=== PATIENT | male | born 1970 | race Caucasian/White ===

== ENCOUNTER → 2023-04-14 09:21 | Outpatient (REF) | payer OTHER, SELFPAY | LOC: ANHLAB 09:21 | PROVIDERS: PCP Family Medicine; Visit Provider Plastic Surgery | DX: L72.11 Pilar cyst (principal) | CPT/HCPCS: 88305 ==

== ENCOUNTER 2023-05-06 06:48 | Outpatient (CLI) | payer OTHER, SELFPAY ==
[2023-05-06 07:19] LABS: Basophils Percent Auto 0.8 % (0.2-1.2); Eosinophils Absolute Auto 0.3 K/mm3 (0-0.3); Eosinophils Percent Auto 5.5 % (0-4.4); Hematocrit 44.2 % (42.0-52.0); Hemoglobin 14.8 g/dL (14.0-18.0); Immature Granulocyte Absolute 0.01 K/mm3 (0.00-0.031); Immature Granulocyte Percent A 0.2 % (0-0.5); Lymphocytes Absolute Auto 1.89 K/mm3 (0.9-3.2); Lymphocytes Percent Auto 37.4 % (18.3-44.2); Mean Corpuscular HGB Conc 33.5 g/dl (32-36); Mean Corpuscular Hemoglobin 29.4 pg (26-34); Mean Corpuscular Volume 87.7 fl (80-100); Mean Platelet Volume 10.6 fl (7.4-10.4); Monocytes Absolute Auto 0.5 K/mm3 (0.1-0.6); Monocytes Percent Auto 8.9 % (2.6-8.5); Neutrophils Absolute Auto 2.4 K/mm3 (1.3-6.7); Neutrophils Percent Auto 47.2 % (45.5-73.1); Platelet Count Result 168 k/mm3 (150-375); Red Blood Count 5.04 M/mm3 (4.6-6.20); Red Cell Distribution Width 12.6 % (11.5-14.5); White Blood Count 5.1 K/mm3 (4.5-10.0)
[2023-05-06 07:41] LABS: Alanine Aminotransferase 29 U/L (6-50); Albumin Level 4.2 g/dL (3.5-5.1); Alkaline Phosphatase 78 U/L (38-126); Anion Gap 5 mmol/L (8-16); Aspartate Amino Transferase 23 U/L (17-59); Bilirubin,Total 0.7 mg/dL (0.2-1.3); Blood Urea Nitrogen 16 mg/dL (9-20); Carbon Dioxide 29 mmol/L (22-30); Chloride 105 mmol/L (98-107); Cholesterol 191 mg/dL (0-200); Estimated Glomerular Filt Rate > 60; Glucose 100 mg/dL (65-110); HDL Direct 46 mg/dL; Potassium 4.2 mmol/L (3.4-5.0); Sodium 139 mmol/L (137-145); Triglycerides 87 mg/dL (<150)
[2023-05-06 07:52] LABS: LDL Cholesterol Direct 113 mg/dL
[2023-05-06 08:00] LABS: Prostate Specific Antigen 1.5 ng/mL (< OR = 4.0)
== END 2023-05-06 06:49 | disposition home or self-care (01) ==
LOC: ANHLAB 06:50
PROVIDERS: PCP Family Medicine; Visit Provider Physician Assistant Medical
DX: R22.0 Localized swelling, mass and lump, head (principal); Z12.5 Encounter for screening for malignant neoplasm of prostate; Z13.1 Encounter for screening for diabetes mellitus; Z13.220 Encounter for screening for lipoid disorders
CPT/HCPCS: 36415; 80053; 80061; 84153; 85025; G0103

== ENCOUNTER → 2023-05-13 08:33 | Outpatient (REF) | payer OTHER, SELFPAY | LOC: ANHLAB 08:33 | PROVIDERS: PCP Family Medicine; Visit Provider Plastic Surgery | DX: L72.11 Pilar cyst (principal) | CPT/HCPCS: 88305 ==

== ENCOUNTER → 2023-06-02 14:33 | Outpatient (REF) | payer OTHER, SELFPAY | LOC: ANHLAB 14:33 | PROVIDERS: PCP Family Medicine; Visit Provider Plastic Surgery | DX: L72.11 Pilar cyst (principal) | CPT/HCPCS: 88305 ==

== ENCOUNTER 2023-07-15 00:55 | Day surgery (SDC) | payer OTHER, SELFPAY ==
[2023-06-30 13:42] VITALS: BMI 36.3
[2023-07-15 06:22] VITALS: BP 137/76; PULSE 68; RESP 18; TEMP 36; O2SAT 98; BMI 35.6
[2023-07-15] MEDS: LACTATED RINGERS 1,000 ML 150 ML IV CONT (06:38)
--- NOTE | 2023-07-15 07:22 | P.PNAN_ITS ---
Anes - Initial Pre Proc Eval Procedure: Operation Date: 07/15/23 07:30 Proposed Procedures p Screening Colonoscopy - Teodoro Beck DO Date/Time: 07/15/23 07:22 Surgeon: Teodoro Beck DO Pre Op Diagnosis: neoplasm screening Patient Data Age: 53 Gender: M Height: 1.8 m Weight: 116 kg Last Vital Signs Temp 96.8 F L 07/15/23 06:22 Pulse 68 07/15/23 06:22 Resp 18 07/15/23 06:22 BP 137/76 07/15/23 06:22 Pulse Ox 98 07/15/23 06:22 O2 Del Method Room Air 07/15/23 06:22 Allergies Allergy/AdvReac Type Severity Reaction Status Date / Time No Known Allergies Allergy Verified 07/15/23 06:28 Home Medications Medication Instructions Recorded Confirmed Type No Home Medications 03/13/23 07/15/23 History Patient hx anesthesia problems: none Family hx anesthesia problems: none Results Review: All pre-operative results and documents have been reviewed as part of the pre- operative evaluation. [facility] Past Medical History Medical History (Updated 05/08/23 @ 10:24 by NIKOLE Bhat) BMI 37.0-37.9, adult BMI 38.0-38.9,adult Mass of head Skin tag Tonsillectomy planned Surgical History Surgical History (Updated 05/08/23 @ 10:24 by NIKOLE Bhat) H/O removal of cyst Family History Family History (Updated 05/08/23 @ 10:25 by NIKOLE Bhat) Father Hypertension Alzheimer's disease Grandparent Family history of coronary artery disease Mother Hypertension Heart disease Other Cerebrovascular accident Diabetes mellitus Social History Social History (Updated 05/08/23 @ 10:27 by NIKOLE Bhat) Smoking status: Never smoker Second hand tobacco smoke exposure: Yes Alcohol intake: current Drinks per week: 1 Substance use: never Substance use type: does not use Do You Feel Safe in your Home?: Yes Lack of Transportation: No Lack of Food: Never True Current Housing: I Have Housing Concerned About Future Housing: No Difficulty Paying Gas/Electric Bills: No Difficulty Paying for Meds: No Currently Unemployed: No Education: Bachelor's Degree Difficulty w/ Childcare or Family Care: No Living arrangements: with family Occupation/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 Informed Consent: The patient's anesthetic plan and its attendant risks and benefits were discussed with the patient/family/POA. Questions were solicited and answers provided to the satisfaction of the patient/family/POA.
--- NOTE | 2023-07-15 07:31 | PM.IMHP ---
H&P: HPI History of Present Illness Date/Time: 07/15/23 07:31 Chief Complaint: Screening for colorectal cancer Narrative: This is a 53-year-old man who presents for his 1st colonoscopy. He denies any hematochezia or melena. He denies any family history of colon cancer. Review of Systems Review of Systems: All systems reviewed & are unremarkable except as noted in HPI and below Constitutional: Constitutional: Denies chills, Denies fever(s), Denies headache(s) and Denies weight loss Eyes: Eyes: Denies change in vision ENT: Denies dizziness, Denies headache(s), Denies neck mass and Denies throat swelling Cardiovascular: Cardiovascular: Denies chest pain, Denies lightheadedness and Denies dyspnea Respiratory: Respiratory: Denies cough, Denies dyspnea and Denies wheezing Gastrointestinal: Gastrointestinal: Denies abdominal pain, Denies change in bowel habits, Denies nausea and Denies vomiting Genitourinary: Genitourinary: Denies hematuria and Denies dysuria Musculoskeletal: Musculoskeletal: Reports as per HPI Integumentary/Breasts: Skin/Breast: Reports as per HPI Neurologic: Denies dizziness and Denies headache(s) Allergic/Immunologic: Allergic/Immunologic: Denies throat swelling and Denies wheezing [facility] Past Medical History Medical History (Updated 07/15/23 @ 07:32 by Teodoro Beck DO) BMI 37.0-37.9, adult BMI 38.0-38.9,adult Mass of head Skin tag Tonsillectomy planned Surgical History Surgical History (Updated 05/08/23 @ 10:24 by NIKOLE Bhat) H/O removal of cyst Family History Family History (Updated 05/08/23 @ 10:25 by NIKOLE Bhat) Father Hypertension Alzheimer's disease Grandparent Family history of coronary artery disease Mother Hypertension Heart disease Other Cerebrovascular accident Diabetes mellitus Social History Social History (Updated 05/08/23 @ 10:27 by NIKOLE Bhat) Smoking status: Never smoker Second hand tobacco smoke exposure: Yes Alcohol intake: current Drinks per week: 1 Substance use: never Substance use type: does not use Do You Feel Safe in your Home?: Yes Lack of Transportation: No Lack of Food: Never True Current Housing: I Have Housing Concerned About Future Housing: No Difficulty Paying Gas/Electric Bills: No Difficulty Paying for Meds: No Currently Unemployed: No Education: Bachelor's Degree Difficulty w/ Childcare or Family Care: No Living arrangements: with family Occupation/Education: occupation Additional occupation/education comments: IT Gender identity (if verbalized by the patient): Male Spiritual care concerns: No Meds Home Medications and Allergies Home Medications Medication Instructions Recorded Confirmed Type No Home Medications 03/13/23 07/15/23 History Allergies Allergy/AdvReac Type Severity Reaction Status Date / Time No Known Allergies Allergy Verified 07/15/23 06:28 Vital Signs Vital Signs - 24 hr 07/15/23 06:22 Temperature 36.0 C L Pulse Rate 68 Respiratory Rate 18 Blood Pressure 137/76 Pulse Oximetry 98 Oxygen Delivery Room Air Exam Const: General: no acute distress and alert Orientation/consciousness: patient oriented x3 HENMT: Head: normocephalic and atraumatic Ears: hearing grossly normal bilaterally Face/Nose/Sinus: Normal nares present Mouth: Yes Normal oral and palatal mucosa present Eyes: Periorbital: periorbital findings normal Sclera: sclerae normal EOM: EOMs intact bilaterally Neck: Neck: normal visual inspection, no lymphadenopathy and trachea midline Chest: Chest palpation & inspection: normal inspection of the chest Resp: Effort & Inspection: normal respiratory effort Auscultation: clear to auscultation bilaterally Cardio: Jugular venous distension: no JVD Rate: regular rate Rhythm: regular rhythm Heart sounds: S1 normal heart sound present and S2 normal heart sound present Peripheral puls
[2023-07-15 08:05] VITALS: BP 94/61; PULSE 79; RESP 28; O2SAT 94
[2023-07-15 08:15] VITALS: BP 92/63; PULSE 74; RESP 23; O2SAT 95
[2023-07-15 08:25] VITALS: BP 104/68; PULSE 68; RESP 20; O2SAT 95
== END 2023-07-15 08:38 | disposition home or self-care (01) ==
PROVIDERS: PCP Family Medicine; Visit Provider Surgery
PROC: 0DJD8ZZ Inspection of Lower Intestinal Tract, Via Natural or Artificial Opening Endoscopic (ICD-10-PCS; CPT 45378; principal; 2023-07-15 07:30)
DX: Z12.11 Encounter for screening for malignant neoplasm of colon (principal); D12.8 Benign neoplasm of rectum; K62.1 Rectal polyp; K57.30 Diverticulosis of large intestine without perforation or abscess without bleeding; E66.9 Obesity, unspecified; Z68.35 Body mass index [BMI] 35.0-35.9, adult
CPT/HCPCS: 45385; 88305; J2704; J7120